=== PATIENT | male | born 1985 | race Caucasian/White ===

== ENCOUNTER → 2021-06-18 | Outpatient (CLI) | payer BC ==
--- NOTE | 2021-06-18 09:57 | RAD ---
Renal ultrasound. 03/21/2013. Indication: Hypertension, renal artery stenosis. COMPARISON STUDY: None Discussion: Sonographic evaluation the bilateral kidneys was performed. Ultrasound evaluation of gab l vasculature was performed including color Doppler imaging with spectral analysis. Findings: The bilateral kidneys are normal in size position and echotexture. No evidence of nephrolithiasis or obstructing uropathy is identified. Right kidney measures 12.7 cm in length. Left kidney measures 12. 3 cm in length. Peak systolic velocity of the abdominal aorta: 118 cm/sec Peak systolic velocity proximal right renal artery: 88 cm/sec Peak systolic velocity of the distal right renal artery: 73 cm/sec. Right-sided renal aortic ratio: Less than 1 (normal is less than 3.5) Peak systolic velocity proximal left renal artery: 79 cm/sec Peak systolic velocity distal left renal artery: 59 m/sec Left renal aortic ratio: Less than 1 (normal is less than 3.5) The bilateral renal veins are grossly patent Impression: No sonographic evidence of hemodynamically significant renal arterial stenosis Electronically signed by: Ismael Mejia MD (06/18/2021 9:54 AM) [id number]
== END ==
LOC: US 06:45
PROVIDERS: ATTEND Family Medicine
DX: I10 Essential (primary) hypertension (principal)
CPT/HCPCS: 93975